=== PATIENT | male | born 1940 | race Caucasian/White ===

== ENCOUNTER 2020-06-01 15:05 | Emergency (ER) | payer MEDICARE, BC ==
--- NOTE | 2020-06-01 15:21 | EDM.PDOCBH ---
ED HPI GENERAL MEDICAL PROBLEM - General Chief Complaint: Behavioral/Psych Stated Complaint: EVAL [facility]IA [facility] Time Seen by Provider: 06/01/20 15:21 Source of Information: Reports: Patient, EMS, RN, Other (RN attempted to contact via home phone with no answer) - History of Present Illness INITIAL COMMENTS - FREE TEXT/NARRATIVE: 80 year old male present to [place] ER via EMS due to verbal argument with sister resulting patient making threats about shooting his sister and hurting himself. [facility] chart is reviewed and patient has a history of advanced dementia with more aggressive behavior. Patient was unable to given any history or details today at time of initial evaluation. Patient treated with Zyprexa 10 mg IM and behavior is much more manageable. Patient is agreeable to CT scan after some additional convincing. Patient has much better insight at this time and believes that his behavior was not appropriate. Patient has been working with family to get a home equity loan to pay off all remaining debt $40,000 for value of home. Patient needed a co-signer which was denied by son, daughter and now sister. Patient got very frustrated and angry with the situation and now feels remorse yelling out at family. Patient does not recall what happened earlier in ER visit. - Related Data Allergies Allergy/AdvReac Type Severity Reaction Status Date / Time No Known Allergies Allergy Verified 06/01/20 15:14 Home Meds: Home Meds Albuterol Sulfate [Albuterol Sulfate Hfa] 8.5 gm IH BEDTIME 06/01/20 [History] Furosemide 20 mg PO DAILY PRN 06/01/20 [History] Lisinopril/Hydrochlorothiazide [Lisinopril-Hctz 20-25 mg Tab] 1 tab PO DAILY 06/01/20 [History] OLANZapine [ZyPREXA] 5 mg PO DAILY 30 Days #30 tab 06/01/20 [Rx] Venlafaxine HCl [Venlafaxine ER] 75 mg PO DAILY 06/01/20 [History] Warfarin Sodium [Coumadin] 7.5 mg PO DAILY 06/01/20 [History] Social & Family History - Tobacco Use Smoking Status *Q: Current Every Day Smoker Years of Tobacco use: 51 Packs/Tins Daily: 1 - Caffeine Use Caffeine Use: Reports: Soda - Recreational Drug Use Recreational Drug Use: No ED ROS GENERAL - Review of Systems Review Of Systems: Unable To Obtain Reason Not Obtained: dementia with difficulty behavior. Denied any concerns ED EXAM, BEHAVIORAL HEALTH - Physical Exam Exam: See Below Exam Limited By: Combative/Threatening General Appearance: Alert, Severe Distress (due to anger and brought to ER wihtout reason) Eye Exam: Bilateral Eye: EOMI, Normal Inspection Ears: Normal External Exam, Hearing Loss Nose: Normal Inspection, Normal Mucosa Throat/Mouth: Normal Inspection, Normal Voice, No Airway Compromise Head: Atraumatic, Normocephalic Neck: Normal Inspection, Full Range of Motion Respiratory/Chest: No Respiratory Distress Cardiovascular: Normal Peripheral Pulses (Male) Exam: Deferred Rectal (Males) Exam: Deferred Extremities: Normal Inspection, Other (bruising and skin tears noted. ) Neurological: Alert Psychiatric: Restless, Agitated, Uncooperative, Threatening Behavior Skin Exam: Warm, Dry COURSE, BEHAVIORAL HEALTH COMP - Course Vital Signs: Last Vital Signs Temp 37.3 C 06/01/20 15:41 Pulse 70 06/01/20 15:41 Resp 16 06/01/20 15:41 BP 130/83 06/01/20 15:41 Pulse Ox 96 06/01/20 15:41 Orders, Labs, Meds: Laboratory Tests 06/01/20 06/01/20 06/01/20 Range/Units 16:16 16:20 16:29 WBC 8.4 (4.5-11.0) K/uL RBC 4.66 (4.30-5.90) M/uL Hgb 14.8 (12.0-15.0) g/dL Hct 43.6 (40.0-54.0) % MCV 94 (80-98) fL MCH 32 H (27-31) pg MCHC 34 (32-36) % Plt Count 343 (150-400) K/uL Neut % (Auto) 72 H (36-66) % Lymph % (Auto) 17 L (24-44) % [place] % (Auto) 10 H (2-6) % Eos % (Auto) 1 L (2-4) % Baso % (Auto) 0 (0-1) % PT 20.1 H (9.5-12.0) sec INR 1.93 H (0.80-1.20) Sodium (140-148) mmol/L Potassium (3.6-5.2) mmol/L Chloride (100-108) mmol/L Carbon Dioxide (21-32) mmol/L Anion Gap (5.0-14.0) mmol/L BUN (7-18) mg/dL Creatinine (0.8-1.3) mg/dL Est Cr Clr Drug Dosing mL/min Estimated GFR (MDRD) (>60) Glucose (74-106) mg/dL Calcium (8.5-10.1) mg/dL Total Bilirubin (0.2-1.0) mg/dL AST (15-37) U/L ALT (12-78) U/L Alkaline Phosphatase (46-116) U/L Total Protein (6.4-8.2) g/dL Albumin (3.4-5.0) g/dL Globulin (2.3-3.5) g/dL Albumin/Globulin Ratio (1.2-2.2) TSH, Ultra Sensitive (0.358-3.740) uIU/mL Urine Color Yellow (YELLOW) Urine Appearance Clear (CLEAR) Urine pH 5.5 (5.0-8.0) Ur Specific [place] 1.020 (1.008-1.030) Urine Protein Negative (NEGATIVE) mg/dL Urine Glucose (UA) Negative (NEGATIVE) mg/dL Urine Ketones Negative (NEGATIVE) mg/dL Urine Occult Blood Negative (NEGATIVE) Urine Nitrite Negative (NEGATIVE) Urine Bilirubin Negative (NEGATIVE) Urine Urobilinogen 0.2 (0.2-1.0) EU/dL Ur Leukocyte Esterase Negative (NEGATIVE) Urine RBC 0-5 (0-5) Urine WBC 0-5 (0-5) Ur Epithelial Cells Rare Amorphous Sediment Not seen Urine Bacteria Not seen Urine Mucus Few 06/01/20 Range/Units 16:29 WBC (4.5-11.0) K/uL RBC (4.30-5.90) M/uL Hgb (12.0-15.0) g/dL Hct (40.0-54.0) % MCV (80-98) fL MCH (27-31) pg MCHC (32-36) % Plt Count (150-400) K/uL Neut % (Auto) (36-66) % Lymph % (Auto) (24-44) % [place] % (Auto) (2-6) % Eos % (Auto) (2-4) % Baso % (Auto) (0-1) % PT (9.5-12.0) sec INR (0.80-1.20) Sodium 138 L (140-148) mmol/L Potassium 3.8 (3.6-5.2) mmol/L Chloride 97 L (100-108) mmol/L Carbon Dioxide 35 H (21-32) mmol/L Anion Gap 9.8 (5.0-14.0) mmol/L BUN 15 (7-18) mg/dL Creatinine 1.2 (0.8-1.3) mg/dL Est Cr Clr Drug Dosing 57.70 mL/min Estimated GFR (MDRD) 58 L (>60) Glucose 100 (74-106) mg/dL Calcium 8.8 (8.5-10.1) mg/dL Total Bilirubin 0.7 (0.2-1.0) mg/dL AST 16 (15-37) U/L ALT 28 (12-78) U/L Alkaline Phosphatase 96 (46-116) U/L Total Protein 7.2 (6.4-8.2) g/dL Albumin 3.4 (3.4-5.0) g/dL Globulin 3.8 H (2.3-3.5) g/dL Albumin/Globulin Ratio 0.9 L (1.2-2.2) TSH, Ultra Sensitive 1.263 (0.358-3.740) uIU/mL Urine Color (YELLOW) Urine Appearance (CLEAR) Urine pH (5.0-8.0) Ur Specific [place] (1.008-1.030) Urine Protein (NEGATIVE) mg/dL Urine Glucose (UA) (NEGATIVE) mg/dL Urine Ketones (NEGATIVE) mg/dL Urine Occult Blood (NEGATIVE) Urine Nitrite (NEGATIVE) Urine Bilirubin (NEGATIVE) Urine Urobilinogen (0.2-1.0) EU/dL Ur Leukocyte Esterase (NEGATIVE) Urine RBC (0-5) Urine WBC (0-5) Ur Epithelial Cells Amorphous Sediment Urine Bacteria Urine Mucus Medications Discontinued Medications Generic Name Dose Route Start Last Admin Trade Name Freq PRN Reason Stop Dose Admin Olanzapine 10 mg 06/01/20 16:16 06/01/20 16:46 Zyprexa IM 06/01/20 16:17 10 mg ONETIME ONE Administration Olanzapine 5 mg 06/01/20 22:11 Zyprexa PO 06/01/20 22:12 ONETIME STA Re-Assessment/Re-Exam: Crisis requested for further evaluation due to social situation and patient/family safety. Crisis does not feel they can offer any assistance, as the patient needs acute placement. adoption worker contacted for assistance with placement. 16:45 pm: Spoke with and sister about "Danish's" presentation in the ER and current behavior which is very uncontrollable with no ability to redirected. Patient is yelling and swearing at nursing staff. He is making threatening and insulting statements to everyone present in the ER. Blood was drawn to ensure no medical reason for behavior. Patient was agreeable to blood draw. I ordered Zyprexa for acute behavior during ER visit at this time. Patient is verbally abusive and threatening/declining medications. Police were called for show of force to give medications to help with behavior. Zyprexa given. 10 mg IM. 17:30 pm: Update regarding placement options: [facility]:[place]:[facility] or [facility]: [place]. Will attempt to get placement in [place] first. Second location attempt will be [facility]. Patient was given IM Zyprexa and behavior is much improved. Patient remains angry but able to redirect and agrees to CT Head evaluation. Patient was allowed to walk to imaging department. Patient has improved insight with events of the day with sister escalating his behavior. Paperwork faxed to [facility] but no bed available. Called [facility] to speak to Psychiatrist: No geriatric mental health care available. Further information about [facility], Elisabet Kathleen. Paper will be faxed to obtain placement. Update and sister about CT Head results/Blood work and unfortunate news that [facility] does not have an available bed. and Sister are going to head home at this time but available via home phone number or sister cell phone number. is very receptive, soft spoken and could easily be manipulated. Sister is a bit of an aggressor with very offensive/controlling behavior. 21:00: Unfortunately, we are unable to find placement tonight. Attempted: [facility] due to lack of bed available o r/behavior concerns. Patient will be informed that he will likely be spending the night to allow for opportunity for dialysis social worker to contact facility or get [facility] dialysis social worker involved to ensure safe home environment. My impression is that he has some dementia which is noted by his clinic provider. He has a good relationship with his whom is very passive and has a hard time believing his behavior at time of ER presentation. Patient is quick to anger, sister set him off to today while visiting for the last month. Patient would like sister to go home. Patient has been very resistant to receiving a work-up for progression or state of dementia, offered in [place] nearly 1 year ago. I am concern that his sister is trying to manipulate the home life situation to her advantage. I do believe both Donnell Schrader" and his are suffering from stages of dementia due to age. I do not believe Donnell Schrader" is a true risk to himself or others. I believe his statements were said in anger without intent or any desire to follow through. [facility] has a geriatric acute mental health unit, nursing staff will attempt to contact to see if placement available. No bed available. Nursing staff and myself had a conversation with about no available placement and "Danish" is not a risk to self or others. Danish is not appropriate to be placed on a medical or mental health hold at this time. Danish responded well to Zyprexa IM 10mg for acute behavior seems to be remorse of situation. He is very forgetful of conversations. is comfortable with Danish returning home with medications to help with outbursts and behavior concerns. Sister, Celine, inserted herself in the conversation. adoption worker consultation for Behavior and Home life concerns due to sister. Son and Daughter need to be contacted and involved with decisions. , Latosha, is very passive and Sister, Celine, is much more aggressive and controlling, has been visiting for 1 month, unsure purpose. Safety, welfare, mental health and financial concerns. Whom is driving for care, groceries when both Latosha and Danish have difficulty remembering. Danish will be going home tonight with and sister (whom is driving) with prescription for Zyprexa 5mg daily x 10 tablets. Needs urgent appointment with Sha Corrales to assess situation. adoption worker consultation ordered STAT, whom may need to contact [facility] social work when patient resides. Danish will be given Zyprexa 5 mg this evening. Re-Assessment/Re-Exam Date: 06/01/20 (Patient has been pleasant and cooperative with cares since Zyprexa dosing.) Departure - Departure Time of Disposition: 23:00 Disposition: Home, Self-Care 01 Clinical Impression: Acute reaction to situational stress, Dementia, Depressive disorder - Discharge Information Prescriptions: OLANZapine [ZyPREXA] 5 mg PO DAILY 30 Days #30 tab Instructions: Dementia Caregiver Guide, Dementia, Vascular Dementia Referrals: PCP,None [Primary Care Provider] - Forms: ED Department Discharge Additional Instructions: 1. Zyprexa 5mg daily to help stabilize mood and anger. 2. Call PCP at 8am regarding ER visit ad need for close follow-up to ensure safety. 3. Social work consultation placed to ensure safety and welfare at home in additional to dementia concerns. 4. Avoid conflict until medications help stabilize mood. Sepsis Event Note (ED) - Focused Exam Vital Signs: Vital Signs Temp Pulse Resp BP Pulse Ox 06/01/20 15:41 37.3 C 70 16 130/83 96
[2020-06-01] MEDS ORDERED: OLANZapine 10 MG Vial IM ONE (16:16)
--- NOTE | 2020-06-01 18:03 | CRLCT ---
INDICATION: Acute psychosis TECHNIQUE: Noncontrast axial CT of the head is submitted. No comparisons. FINDINGS: Mild cerebral atrophy. 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 The remainder of the ventricles, sulci and gyri are of normal size, shape and contour for age and degree of atrophy. Midline structures are centrally located. No convincing evidence of suspicious intra- or extra-axial fluid collections. Mild to moderate patchy regions of decreased attenuation within the periventricular and subcortical white matter of both cerebral hemispheres. IMPRESSION: 1. No radiographic evidence of acute intracranial abnormalities. 2. Mild cerebral atrophy. 3. Mild to moderate supratentorial white matter changes that are non-specific, but statistically most likely related to small vessel ischemic disease. 4. 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 Dictated by Anselmo Beltre MD @ 06/01/2020 6:01:06 PM Please note that all CT scans at this facility use dose modulation, iterative reconstruction, and/or weight-based dosing when appropriate to reduce radiation dose to as low as reasonably achievable. Dictated by: Anselmo Beltre MD @ 06/01/2020 18:01:11 (Electronically Signed)
[2020-06-01] MEDS ORDERED: OLANZapine 5 MG Tab PO STA (22:11)
== END 2020-06-02 00:06 | disposition home or self-care (01) ==
LOC: JP.ED 15:05
DX: F43.0 Acute stress reaction (principal); F03.90 Unspecified dementia, unspecified severity, without behavioral disturbance, psychotic disturbance, mood disturbance, and anxiety; F32.9 Major depressive disorder, single episode, unspecified; F17.210 Nicotine dependence, cigarettes, uncomplicated; Z79.01 Long term (current) use of anticoagulants; Z79.899 Other long term (current) drug therapy
CPT/HCPCS: 36415; 70450; 80053; 81001; 84443; 85025; 85610; 96372; 99285; A9270; J3490